=== PATIENT | female | born 1970 ===

== ENCOUNTER 2018-01-29 13:40 | Emergency (ER) | payer SELFPAY ==
--- OUTSIDE RECORDS SUMMARY | 2018-01-29 13:45 | XMS REPORT | Continuity of Care Document ---
:1970 Author Organization Interface Problems Problem Status Onset Classification Date Comments Source Date Reported Influenza Diagnosis 01/12/2017 [facility] vaccine 7 needed Medications Medication Details Route Status Patient Ordering Order Source Instructions Provider Date Estradiol 0.1 MG/ML Estrace Active [facility] Vaginal Cream 0.01% (0.1 [Estrace] mg/gram) vaginal cream I 1 GRAM VAGINALLY 2 TIMES A WK Penicillin V penicillin V Active [facility] Potassium 500 MG Oral potassium Tablet 500 mg tablet TK 1 T PO TID Cyclosporine 0.5 Restasis Active [facility] MG/ML Ophthalmic 0.05 % eye Suspension [Restasis] drops in a dropperette INT 1 DROP INTO OU BID Suprep Bowel Prep Kit Suprep Bowel Active [facility] 17.5 gram-3.13 Prep Kit gram-1.6 gram oral 17.5 solution gram-3.13 gram-1.6 gram oral solution TK 2 BOTTLES PO ONCE FOR 1 DOSE Hydrochlorothiazide triamterene Active [facility] 25 MG / Triamterene 37.5 37.5 MG Oral Capsule mg-hydrochlo rothiazide 25 mg capsule TK 1 C PO QAM Allergies, Adverse Reactions, Alerts Substance Category Reaction Severity Reaction Status Date Comments Source type Reported Immunizations Immunization Date Given Site Status Last Comments Source Updated influenza, 01/12/2017 completed [facility] injectable, quadrivalent, preservative free Results Order Results Value Reference Date Interpretation Comments Source Name Range Vital Signs Vital Sign Value Date Comments Source Height 63 01/12/2017 [facility] Weight 185 01/12/2017 [facility] Encounters Location Location Encounter Encounter Reason Attending ADM DC Status Source Details Type Number For Provider Date Date [facility] [place] [id number] Farshad [id number] Farshad /2016 - [employer]: [id number] [facility] , [place] [address] , Ph. Procedures Procedure Code Date Perfomer Comments Source
--- OUTSIDE RECORDS SUMMARY | 2018-01-29 13:45 | XMS REPORT | Encounter Summary ---
:1970 Author Reason for Visit Flu Immunization Instructions 1. Influenza vaccine needed Fluarix Quad [id number] (PF) 60 mcg (15 mcg x 4)/0.5 mL IM syringe Discussion Note: None recorded.Patient educational handouts: No information available. Plan of Care Reminders Provider Appointments None recorded. Lab None recorded. Referral None recorded. Procedures None recorded. Surgeries None recorded. Imaging None recorded. Medications Name Start Date Estrace 0.01% (0.1 mg/gram) vaginal cream I 1 GRAM VAGINALLY 2 TIMES A WK penicillin V potassium 500 mg tablet TK 1 T PO TID Restasis 0.05 % eye drops in a dropperette INT 1 DROP INTO OU BID Suprep Bowel Prep Kit 17.5 gram-3.13 gram-1.6 gram oral solution TK 2 BOTTLES PO ONCE FOR 1 DOSE triamterene 37.5 mg-hydrochlorothiazide 25 mg capsule TK 1 C PO QAM Medications Administered None recorded. Vitals Height Weight BMI 5 ft 3 in 185 lbs 32.8 kg/m2 Lab Results None recorded. Allergies None recorded. Problems None recorded. Procedures None recorded. Vaccine List Vaccine Type influenza, injectable, quadrivalent, preservative free 01/12/20170.5 mL Social History None recorded. Past Encounters 01/12/2017 Influenza Vaccine Needed [facility]: [address] [place] [address], Ph. History of Present Illness Immunization Reported By: Patient HPI: Immunization Request (normal) no symptoms. Immunization eligibility questions No vaccines in last month, No reaction to previous vaccines:, No Known Allergies Review of Systems Basic Reported By: Patient Constitutional: Constitutional: no fever Eyes: Eyes: no eye complaints Xtpw-Eeyc-Dbpgh-Throat: Ears: no ear complaints. Nose: no nose/sinus problems. Mouth/Throat: no sore throat, no bleeding gums, no mouth complaints, no teeth problems Cardiovascular: Cardiovascular: no chest pain, no shortness of breath, no known heart murmur Respiratory: Respiratory: no cough, no wheezing, no shortness of breath Gastrointestinal: Gastrointestinal: no abdominal pain, no vomiting / diarrhea Genitourinary: Genitourinary: no urinary complaints, no discharge Musculoskeletal: Musculoskeletal: no muscle aches, no muscle weakness, no arthralgias/joint pain, no back pain Skin: Skin: no abnormal / changing mole, no jaundice, no rashes Neurologic: Neurologic: no loss of consciousness, no weakness, no numbness, no seizures, no dizziness, no headaches Physical Exam Immunization Reported By: Patient General Appearance: General: well-developed, well-nourished, no acute distress
--- OUTSIDE RECORDS SUMMARY | 2018-01-29 13:45 | XMS REPORT | Clinical Summary ---
:1970 Author Organization [facility] Address [address] [place] [address] Care Team Providers Name Role Phone Becca Womack MD Primary Care Provider Allergies Active Allergy Reactions Severity Noted Date Comments No Known Drug Allergies 07/12/2015 Medications Medication Sig Dispensed Refills Start Date End Date Status omega-3 fatty Take 1 0 Active acids-vitamin E capsule by 1,000 mg capsule mouth. triamterene-hydroch TAKE ONE 90 capsule 1 01/15/2018 Active lorothiazid CAPSULE BY (DYAZIDE) 37.5-25 MOUTH EVERY mg per MORNING capsuleIndications: Essential hypertension triamterene-hydroch Take 1 90 capsule 1 09/21/2016 12/02/2017 Discontinued lorothiazid capsule by (DYAZIDE) 37.5-25 mouth every mg per morning. TK capsuleIndications: ONE C PO QD Essential hypertension nitrofurantoin, Take 1 14 capsule 0 10/14/2017 10/21/2017 macrocrystal-monohy capsule (100 drate, (MACROBID) mg total) by 100 MG capsule mouth 2 (two) times a day for 7 days. triamterene-hydroch TAKE 1 30 capsule 0 12/02/2017 01/14/2018 Discontinued lorothiazid CAPSULE BY (DYAZIDE) 37.5-25 MOUTH EVERY mg per MORNING capsuleIndications: Essential hypertension Active Problems Problem Noted Date Essential hypertension 07/12/2015 Encounters Date Type Specialty Care Team Description 01/14/2018 Refill Family Medicine Becca Womack MD Essential hypertension 12/02/2017 Refill Family Medicine Becca Womack MD Essential hypertension 10/16/2017 Orders Only Family Medicine Becca Womack MD 10/14/2017 Telephone Family Medicine Becca Womack MD 10/14/2017 Telephone Family Medicine Becca Womack MD 10/09/2017 Office Visit Family Medicine Becca Womack MD Routine general medical examination at health care facility (Primary Dx) 03/18/2017 Telephone General Surgery Barbra Mcdaniel, [employer]UGH[employer]ER-C after 01/28/2017 Immunizations Name Dates Previously Given Next Due INFLUENZA QUAD PF 01/12/2017 Tdap 10/09/2008 Family History Medical History Relation Name Comments No Known Problems Brother Colon cancer Cousin Heart disease Father Hypertension Father Hypertension Mother No Known Problems Sister Relation Name Status Comments Brother Alive Cousin Alive Father Mother Alive Sister Alive Social History Tobacco Use Types Packs/Day Years Used Date Never Smoker Smokeless Tobacco: Never Used Alcohol Use Drinks/Week oz/Week Comments Yes ocassional Sex Assigned at Date Recorded Not on file Job Start Date Occupation Industry Not on file Not on file Not on file Travel History Travel Start Travel End No recent travel history available. Last Filed Vital Signs Vital Sign Reading Time Taken Blood Pressure 109/72 10/09/2017 11:26 AM CDT Pulse 70 10/09/2017 11:26 AM CDT Temperature 36.7 C (98 F) 10/09/2017 11:26 AM CDT Respiratory Rate - - Oxygen Saturation 98% 10/09/2017 11:26 AM CDT Inhaled Oxygen Concentration - - Weight 83.9 kg (185 lb) 10/09/2017 11:26 AM CDT Height 160 cm (5' 3") 10/09/2017 11:26 AM CDT Body Mass Index 32.77 10/09/2017 11:26 AM CDT Plan of Treatment Health Maintenance Due Date Last Done Comments MMR VACCINES (1 of 1 - 1969 Standard series) VARICELLA VACCINES (1 of 2 - 1981 2-dose adolescent series) INFLUENZA VACCINE 10/02/2017 01/12/2017, 01/01/2017, 11/23/2015 CERVICAL CANCER SCREENING 10/09/2020 10/09/2017, 07/20/2015 COLON CANCER SCREENING 12/17/2021 12/17/2016 HEPATITIS B VACCINES Aged Out No longer eligible based on patient's age to complete this topic IPV VACCINES Aged Out No longer eligible based on patient's age to complete this topic MENINGOCOCCAL VACCINE Aged Out No longer eligible based on patient's age to complete this topic Procedures Procedure Name Priority Date/Time Associated Diagnosis Comments [id number] Routine 10/16/2017 after 01/28/2017 Results Miscellaneous Lab Result (10/16/2017) Specimen Blood Narrative Performed At after 01/28/2017 Insurance Payer Benefit Plan / Group Subscriber ID Type Phone Address [facility] x[facility]xx H[facility] Advance Directives Patient has advance care planning documents on file. For more information, please contact:Wil Gonzalez[address] [place] [address]
--- NOTE | 2018-01-29 14:11 | ER ---
Nurse's Notes [facility] Name: Yelena Bray Age: 47 yrs Sex: Female : 1970 Arrival Date: 01/29/2018 Time: 13:41 Bed Waiting Private MD: Diagnosis: Presentation: 01/29 13:49 Presenting complaint: Patient states: Reports headache after drinking "keto juice" for aj 3-4 days. Patient reports that now she is having chest pressure. Transition of care: patient was not received from another setting of care. Onset of symptoms was January 23, 2018. Risk Assessment: Do you want to hurt yourself or someone else? Patient reports no desire to harm self or others. Initial Sepsis Screen: Does the patient meet any 2 criteria? No. Patient's initial sepsis screen is negative. Does the patient have a suspected source of infection? No. Patient's initial sepsis screen is negative. Care prior to arrival: None. 13:49 Method Of Arrival: Wheelchair aj 13:49 Acuity: SONY 3 aj Triage Assessment: 13:51 General: Appears in no apparent distress. comfortable, Behavior is calm, cooperative, aj appropriate for age. Pain: Complains of pain in face and scalp. Neuro: Level of Consciousness is awake, alert, obeys commands, Oriented to person, place, time, situation, Appropriate for age. Neuro: Reports headache. Cardiovascular: Capillary refill < 3 seconds in bilateral fingers Patient's skin is warm and dry. Respiratory: Airway is patent Respiratory effort is even, unlabored, Respiratory pattern is regular, symmetrical. Derm: Skin is intact, is healthy with good turgor, Skin is pink, warm \\T\\ dry. normal. 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 - Social history:: Smoking status: Patient/guardian denies using tobacco. - Ebola Screening: : Patient negative for fever greater than or equal to 101.5 degrees Fahrenheit, and additional compatible Ebola Virus Disease symptoms Patient denies exposure to infectious person Patient denies travel to an Ebola-affected area in the 21 days before illness onset No symptoms or risks identified at this time. Vital Signs: 13:51 BP 125 / 79; Pulse 95; Resp 17; Temp 98.9; Pulse Ox 99% on R/A; Weight 85.28 kg; Height aj 5 ft. 2 in. (157.48 cm); 13:51 Body Mass Index 34.39 (85.28 kg, 157.48 cm) aj ED Course: 13:41 Patient arrived in ED. mr 13:50 Triage completed. aj 13:51 Arm band placed on left wrist. Patient placed in waiting room, Patient notified of wait aj time. EKG completed in triage. Results shown to MD. 14:11 Darrian Mcneil MD is Attending Physician. aj Administered Medications: No medications were administered Outcome: 14:10 Eloped from waiting room, before seeing physician Patient stated to registration, "I'm aj going [facility] my house, I don't want to wait." 14:11 Patient left the ED. aj Signatures: Alondra Lemons, RN RN Adriana Bhardwaj mr
--- NOTE | 2018-01-30 07:21 | EKG ---
Test Date: 2018-01-29 Test Time: 13:51:21 [employer] Project Manager: MARIA EUGENIA MEASUREMENT RESULTS: Intervals: Rate: 84 DE: 154 QRSD: 74 QT: 366 QTc: 432 [place]: P: 34 DE: 154 QRS: 49 T: 23 INTERPRETIVE STATEMENTS: Normal sinus rhythm Nonspecific T wave abnormality Abnormal ECG No previous ECG available for comparison Electronically Signed On 01-30-18 07:20:44 [employer] by Lizandro Marcus
== END 2018-01-29 14:11 | disposition left against medical advice (07) ==
LOC: ER 13:40
DX: Z53.21 Procedure and treatment not carried out due to patient leaving prior to being seen by health care provider (principal)
CPT/HCPCS: 93005; 99281